=== PATIENT | female | born 1995 | race Caucasian/White ===

== ENCOUNTER 2019-11-04 09:02 | Outpatient (CLI) | payer OTHER, SELFPAY ==
--- NOTE | 2019-11-04 09:12 | NM_ITS ---
WS: [id number] NUCLEAR MEDICINE 24 HOUR I-123 THYROID UPTAKE INDICATION: Weight loss memory loss seizures TECHNIQUE: I-123 24 HOUR THYROID UPTAKE WITH PLANAR IMAGING. 145 UCI FADUMO 123 COMPARISON: None FINDINGS: Normal bilateral symmetric thyroid activity in the right and left thyroid lobes. No asymmet bo areas of uptake to indicate hot or cold nodules. Thyroid uptake at 24 hours equals 30.5%. NORMAL 24H THRYOID UPTAKE 8-35% NM/NM thyroid uptake multi 50093 IMPRESSION: Normal 24 hour thyroid uptake.
== END 2019-11-04 09:03 | disposition home or self-care (01) ==
LOC: RAD 09:08
PROVIDERS: Family Provider Family Medicine; PCP Family Medicine; Visit Provider Family Medicine
DX: E05.90 Thyrotoxicosis, unspecified without thyrotoxic crisis or storm (principal)
CPT/HCPCS: 78014; A9516

== ENCOUNTER 2019-11-05 09:00 | Outpatient (CLI) | payer OTHER, SELFPAY | END 2019-11-05 09:01 | disposition home or self-care (01) | LOC: RAD 09:04 | PROVIDERS: Family Provider Family Medicine; PCP Family Medicine; Visit Provider Family Medicine | DX: Z76.89 Persons encountering health services in other specified circumstances (principal) ==

== ENCOUNTER 2020-10-13 10:20 | Emergency (ER) | payer SELFPAY ==
[2020-10-13 10:27] VITALS: BP 121/78; PULSE 96; RESP 18; TEMP 36.3; O2SAT 98; BMI 17.4
[2020-10-13 10:34] VITALS: BP 114/74; PULSE 85; RESP 18; O2SAT 99
--- NOTE | 2020-10-13 10:56 | CT_ITS ---
WS: [id number] CT HEAD NONCONTRAST HISTORY: increasing seizures TECHNIQUE: Contiguous axial imaging performed through the brain in 2.5 mm imaging. Bone and soft tiss ue windows. Sagittal and coronal reformats reviewed. All CT scans at [facility] use at ast one of these dose optimization techniques: automated exposure control; mA and/or kV adjustment pe r patient size (includes targeted exams where dose is matched to clinical indication); or iterative r econstruction. DLP: 718.33 mGy.cm COMPARISON: 01/09/[address] 12/01/2017 No acute intracranial hemorrhage, midline shift or mass effect. No atrophy or prior infarcts or herniation. Retrocerebellar CSF collection is stable consistent with an arachnoid cyst. Ventricles: Normal size with no hydrocephalus. Paranasal sinuses: As visualized are clear. Mastoid air cells: Well pneumatized. Calvarium and scalp: Skull is intact with no soft tissue edema or swelling. CT/CT head wo con* [id number] IMPRESSION: Stable head CT. No interval change since 01/09/2018.
--- NOTE | 2020-10-13 10:57 | W.ED.SEIZURE ---
HPI - Seizure General: Chief Complaint: Seizure Stated Complaint: possible seizures Time Seen by Provider: 10/13/20 10:33 Source: patient and family Mode of arrival: ambulatory Limitations: no limitations History of Present Illness: HPI Narrative: Patient is a 25-year-old female who presents to ED today along with her mother for complaints of increased seizure activity. States between yesterday evening and this morning she has had four seizure activities. Patient tells me she does have a previous history of seizure activity. She tells me she has been evaluated by a neurologist at [place] as well as Dr. Hudson here in [facility] but has never been diagnosed formally with epilepsy. Patient tells me her PCP Dr. Gonzalez is primarily managing her seizures. She tells me she has been on several different antiepileptic medication previously but is currently on Zonegran. She at one point thought there was a correlation between her periods/hormones and her seizure activity therefore Dr. Gonzalez placed her on control to help with this. Patient admittedly smokes marijuana daily. She states she feels this helps tremendously with her seizures. She tells me last night she did not smoke marijuana as usual. She states she will also smoke in the middle of the night but again did not last night. Patient was taking citalopram for her anxiety/depression. She was recently switched to Remeron last month as she was having trouble sleeping and was losing weight. Reports she has gained 4 pounds in the last month after switching. complaint: seizure Onset (ago): hour(s) Description of Episode: tonic-clonic movement Witnessed: Yes - by Bystander (mother) Seizure History: Yes Place: Home Possible Precipitating Event: other (not smoking marijuana like usual) Associated symptoms: Deny chest pain, chills, confusion, fever(s) or syncope Review of Systems Const: Denies: fever(s), chills, body aches or fatigue Eyes: Denies: change in vision or blurry vision Card: Denies: chest pain, palpitations, irregular heart rhythm, lightheadedness, syncope or dyspnea on exertion Resp: Denies: dyspnea, productive cough or pain on inspiration GI: Denies: abdominal pain, nausea, vomiting, heartburn or diarrhea : Denies: flank pain, difficulty voiding, dysuria, urinary frequency or urinary urgency Musc: Denies: neck pain, back pain or joint pain Skin/Breast: Denies: rash Neuro: Denies: headache(s), numbness in extremities, weakness in extremities, sensory changes, dizziness or confusion Psych: Reports: anxiety and depression Physical Exam Const: COMMON NORMALS: no acute distress, patient oriented x3, alert and well nourished ORIENTATION/CONSCIOUSNESS: Yes oriented to person, Yes oriented to place and Yes oriented to time HENMT: COMMON NORMALS: normocephalic and atraumatic HEAD & SCALP: normal to inspection, normocephalic and atraumatic FACE & SINUS: normal facial exam MOUTH: other (abrasions to superior tongue from biting during seizure activity ) Neck/C-Spine: COMMON NORMALS: full ROM, no lymphadenopathy, supple and no meningeal signs Chest: COMMONS NORMALS: normal inspection of the chest Resp: COMMON NORMALS: normal respiratory effort and clear to auscultation bilaterally AUSCULTATION: clear to auscultation bilaterally Cardio: COMMON NORMALS: regular rate and regular rhythm RATE: regular rate RHYTHM: regular rhythm GI: COMMON NORMALS: Normal to inspection, nondistended, normoactive bowel sounds present, Soft to palpation, non-tender, No hepatosplenomegaly present and no masses PALPATION: Yes Soft to palpation and Yes No hepatosplenomegaly present : COMMON NORMALS: Yes no CVA tenderness BLADDER/KIDNEY EXAM: Yes no CVA tenderness Back/Pelvis: COMMON NORMALS: no CVA tenderness and thoracic and lumbar spine normal to inspection Extremity: COMMON NORMALS: normal to inspection Neuro: ELLEN COMA SCALE: document GCS findings Ellen coma scale eye opening: Spontaneous [place] coma scale verbal response: Orientated [place] coma scale motor response: Obey commands [place] coma scale total score: 15 COMMON NORMALS: patient oriented x3, CN's II-XII intact bilaterally, moves all extremities, no focal motor deficits and no sensory deficits noted SENSORIUM/ORIENTATION: Yes alert, Yes oriented to person, Yes oriented to place and Yes oriented to time MENINGEAL SIGNS: Yes no meningeal signs Psych: COMMON NORMALS: mental status grossly normal, Normal thought process present, cooperative, speech normal, activity/motor behavior normal, denies homicidal ideation and denies suicidal ideation APPEARANCE: Yes grossly normal ATTITUDE: Yes calm ACTIVITY/MOTOR BEHAVIOR: Yes appropriate eye contact SPEECH: Yes normal speech MOOD & AFFECT: Yes euthymic mood THOUGHT PROCESS: Normal thought process present THOUGHT CONTENT: Yes Normal thought content present MEMORY/COGNITION: Yes memory grossly intact and Yes cognition grossly intact INSIGHT: Good insight present (Psych) JUDGEMENT: Good judgement present (Psych) Skin: COMMON NORMALS: no rashes or lesions noted GENERAL SKIN EXAM: no rashes or lesions noted Course Consultations: Consultation #1: Dr. Gonzalez-does not recommend any changes to medications at this time. Wants to make sure patient has her diazepam that she can use for seizures at home (mother confirmed they do have this medication). Will follow up with patient in office as needed. Vital Signs: Vital signs: Vital Signs Temperature 97.3 F L 10/13/20 10:27 Pulse Rate 76 10/13/20 11:50 Respiratory Rate 18 10/13/20 11:50 Blood Pressure 114/74 10/13/20 11:50 Pulse Oximetry 96 10/13/20 11:50 MDM - Seizure MDM Narrative: Medical decision making narrative: Patient has not had any seizure activity while here. Her work-up is benign. The only correlation that patient, family, and myself can find is that patient did not smoke marijuana last night and in the middle of the night as usual. She is a heavy habitual marijuana user. Unknown whether the marijuana is actually helping with her seizures or if the seizures are caused by cannabinoid withdrawal. We will have her continue following up with her PCP. Return to ED precautions given. Lab Data: Labs: Lab Results 10/13/20 10/13/20 10/13/20 Range/Units 11:32 11:32 11:32 WBC 12.3 H (4.0-10.0) 10^3/ uL RBC 4.74 (4.1-5.3) 10^6/u L Hgb 14.5 (11.5-15.3) g/dL Hct 43.2 (37.0-47.0) % MCV 91.1 (81-99) fL MCH 30.6 (28.0-34.0) pg MCHC 33.6 (30.0-36.0) g/dL RDW 11.5 L (12.1-15.1) % Plt Count 245 (130-400) 10^3/c mm MPV 10.3 (7.4-10.4) fL Neut % (Auto) 82.1 % Lymph % (Auto) 10.9 % Nye % (Auto) 6.2 % Eos % (Auto) 0.2 % Baso % (Auto) 0.4 % Neut # (Auto) 10.11 H (1.8-7.7) 10^3/u L Lymph # (Auto) 1.3 (0.8-4.8) 10^3/u L Nye # (Auto) 0.8 (0.2-0.9) 10^3/u L Eos # (Auto) 0.0 (0.0-0.8) 10^3/u L Baso # (Auto) 0.1 (0.0-0.1) 10^3/u L Nucleated RBC % (a uto) 0 % Nucleated RBCs # 0.0 /100WBC Sodium 135 L (136-145) mmol/L Potassium 4.1 (3.5-5.1) mmol/L Chloride 107 (98-107) mmol/L Carbon Dioxide 21 L (22-29) mmol/L Anion Gap 11.1 (5-19) BUN 13 (6-20) mg/dL Creatinine 0.7 (0.5-0.9) mg/dL GFR Calculation 101.1 (90-130) mL/min Glucose 111 (65-115) mg/dL Calculated Osmolal ity 281 L (285-295) mOsm/k g Calcium 9.1 (8.5-10.5) mg/dL Magnesium 2.1 (1.7-2.3) mg/dL Total Bilirubin 0.2 (0.15-1.2) mg/dL AST 17 (0-32) U/L ALT 16 (0-33) U/L Alkaline Phosphata se 41 (35-105) IU/L Total Protein 6.8 (6.6-8.7) g/dL Albumin 3.9 (3.5-5.2) g/dL Globulin 2.9 (1.3-4.6) g/dL Urine Color (Yellow) Urine Appearance (CLEAR) Urine pH (5-7) Ur Specific Gravit y (1.005-1.030) Urine Protein (Negative) Urine Glucose (UA) (Normal) Urine Ketones (Negative) Urine Blood (Negative) Urine Nitrate (Negative) Urine Bilirubin (Negative) Urine Urobilinogen (Negative) mg/dL Ur Leukocyte Azul ase (Negative) Urine HCG, Qual Negative (Negative) Salicylates < 0.3 L (3-10) mg/dL Urine Opiates Scre en (Negative) ng/mL Acetaminophen < 5.0 L (10-30) ug/mL Ur Barbiturates Sc reen (Negative) ng/mL Ur Phencyclidine S crn (Negative) ng/mL Ur Amphetamines Sc reen (Negative) ng/mL U Benzodiazepines Scrn (Negative) ng/mL Urine Cocaine Scre en (Negative) ng/mL U Marijuana (THC) Screen (Negative) ng/mL Ethyl Alcohol < 10 (0-10) mg/dL 10/13/20 10/13/20 Range/Units 11:45 11:45 WBC (4.0-10.0) 10^3/ uL RBC (4.1-5.3) 10^6/u L Hgb (11.5-15.3) g/dL Hct (37.0-47.0) % MCV (81-99) fL MCH (28.0-34.0) pg MCHC (30.0-36.0) g/dL RDW (12.1-15.1) % Plt Count (130-400) 10^3/c mm MPV (7.4-10.4) fL Neut % (Auto) % Lymph % (Auto) % Nye % (Auto) % Eos % (Auto) % Baso % (Auto) % Neut # (Auto) (1.8-7.7) 10^3/u L Lymph # (Auto) (0.8-4.8) 10^3/u L Nye # (Auto) (0.2-0.9) 10^3/u L Eos # (Auto) (0.0-0.8) 10^3/u L Baso # (Auto) (0.0-0.1) 10^3/u L Nucleated RBC % (a uto) % Nucleated RBCs # /100WBC Sodium (136-145) mmol/L Potassium (3.5-5.1) mmol/L Chloride (98-107) mmol/L Carbon Dioxide (22-29) mmol/L Anion Gap (5-19) BUN (6-20) mg/dL Creatinine (0.5-0.9) mg/dL GFR Calculation (90-130) mL/min Glucose (65-115) mg/dL Calculated Osmolal ity (285-295) mOsm/k g Calcium (8.5-10.5) mg/dL Magnesium (1.7-2.3) mg/dL Total Bilirubin (0.15-1.2) mg/dL AST (0-32) U/L ALT (0-33) U/L Alkaline Phosphata se (35-105) IU/L Total Protein (6.6-8.7) g/dL Albumin (3.5-5.2) g/dL Globulin (1.3-4.6) g/dL Urine Color Yellow (Yellow) Urine Appearance Clear (CLEAR) Urine pH 6 (5-7) Ur Specific Gravit y 1.020 (1.005-1.030) Urine Protein Neg (Negative) Urine Glucose (UA) Norm (Normal) Urine Ketones Negative (Negative) Urine Blood Neg (Negative) Urine Nitrate Negative (Negative) Urine Bilirubin Neg (Negative) Urine Urobilinogen Norm (Negative) mg/dL Ur Leukocyte Azul ase Negative (Negative) Urine HCG, Qual (Negative) Salicylates (3-10) mg/dL Urine Opiates Scre en Negative (Negative) ng/mL Acetaminophen (10-30) ug/mL Ur Barbiturates Sc reen Negative (Negative) ng/mL Ur Phencyclidine S crn Negative (Negative) ng/mL Ur Amphetamines Sc reen Negative (Negative) ng/mL U Benzodiazepines Scrn Negative (Negative) ng/mL Urine Cocaine Scre en Negative (Negative) ng/mL U Marijuana (THC) Screen Positive H (Negative) ng/mL Ethyl Alcohol (0-10) mg/dL Imaging Data^: CT Head: Radiologist's impression: [address] [address] [address] Scan Report Signed Patient: Talia LyUnsimone #: [id number] : 1995Acct#:[id number] Age/Sex: 25 / FADM Date: 10/13/20 Loc: ERRoom/Bed: Attending Dr: Ordering Provider/Ordering MD: Alysa Nevarez Date of Service: 10/13/20 Procedure(s): CT head wo con* [id number] Accession Number(s): [id number] Report Number: [id number] WS: [id number] CT HEAD NONCONTRAST HISTORY: increasing seizures TECHNIQUE: Contiguous axial imaging performed through the brain in 2.5 mm imaging. Bone and soft tissue windows. Sagittal and coronal reformats reviewed. All CT scans at [facility] use at least one of these dose optimization techniques: automated exposure control; mA and/or kV adjustment per patient size (includes targeted exams where dose is matched to clinical indication); or iterative reconstruction. DLP: 718.33 mGy.cm COMPARISON: 01/09/[address] 12/01/2017 No acute intracranial hemorrhage, midline shift or mass effect. No atrophy or prior infarcts or herniation. Retrocerebellar CSF collection is stable consistent with an arachnoid cyst. Ventricles: Normal size with no hydrocephalus. Paranasal sinuses: As visualized are clear. Mastoid air cells: Well pneumatized. Calvarium and scalp: Skull is intact with no soft tissue edema or swelling. CT/CT head wo con* [id number] IMPRESSION: Stable head CT. No interval change since 01/09/2018. Dictated By:Galilea Corado DO Signed By:Galilea Corado DOSigned Date/Time:10/13/20 1201 DD/ 1158 Discharge Plan Discharge Patient Disposition: Home Clinical Impression: Seizure Condition: Stable Prescriptions: No Action zonisamide 100 mg capsule 200 mg PO BID@0900,2100 RF: 0 mirtazapine 15 mg tablet 15 mg PO BEDTIME@2100 RF: 0 Loryna (28) 3-0.02 mg tablet 1 tab PO DAILY@0900 RF: 0 Zofran 1 tab PO Q8H PRN (Reason: nausea/vomiting) RF: 0 Discharge Orders: Discharge ED (Routine); Ordered 10/13/20 Ordered By: Alysa Nevarez Referrals: Rod Gonzalez MD [Primary Care Provider] - Coding Level of Care Code ED [employer] for Chg Fwd Exam Comprehensive
[2020-10-13 11:39] LABS: Basophils # 0.1 10^3/uL (0.0-0.1); Basophils % 0.4 %; Eosinophils % 0.2 %; Hematocrit 43.2 % (37.0-47.0); Hemoglobin 14.5 g/dL (11.5-15.3); Lymphocytes # 1.3 10^3/uL (0.8-4.8); Lymphocytes % 10.9 %; Mean Corpuscular HGB Conc 33.6 g/dL (30.0-36.0); Mean Corpuscular Hemoglobin 30.6 pg (28.0-34.0); Mean Corpuscular Volume 91.1 fL (81-99); Mean Platelet Volume 10.3 fL (7.4-10.4); Monocytes # 0.8 10^3/uL (0.2-0.9); Monocytes % 6.2 %; Neutrophils # 10.11 10^3/uL (1.8-7.7); Neutrophils % 82.1 %; Nucleated Red Blood Cells % 0 %; Platelet Count 245 10^3/cmm (130-400); Red Blood Count 4.74 10^6/uL (4.1-5.3); Red Cell Distribution Width 11.5 % (12.1-15.1); White Blood Count 12.3 10^3/uL (4.0-10.0)
[2020-10-13 11:50] VITALS: BP 114/74; PULSE 76; RESP 18; O2SAT 96
[2020-10-13 11:54] LABS: Add Urine Microscopic? NO
[2020-10-13 11:56] LABS: Alanine Aminotransferase 16 U/L (0-33); Albumin Level 3.9 g/dL (3.5-5.2); Alkaline Phosphatase 41 IU/L (35-105); Anion Gap 11.1 (5-19); Aspartate Amino Transferase 17 U/L (0-32); Blood Urea Nitrogen 13 mg/dL (6-20); Calcium 9.1 mg/dL (8.5-10.5); Carbon Dioxide 21 mmol/L (22-29); Chloride 107 mmol/L (98-107); Globulin 2.9 g/dL (1.3-4.6); Glomerular Filtration Rate 101.1 mL/min (90-130); Glucose 111 mg/dL (65-115); Magnesium 2.1 mg/dL (1.7-2.3); Osmolality Calculated 281 mOsm/kg (285-295); Potassium 4.1 mmol/L (3.5-5.1); Sodium 135 mmol/L (136-145); Total Bilirubin 0.2 mg/dL (0.15-1.2); Total Protein 6.8 g/dL (6.6-8.7)
[2020-10-13 11:58] LABS: Bilirubin Urine Neg (Negative); Blood Urine Neg (Negative); Glucose Urine UA Norm (Normal); Ketones Urine Negative (Negative); Leukocyte Esterase Urine Negative (Negative); Nitrate Urine Negative (Negative); Protein Urine Neg (Negative); Urine Appearance Clear (CLEAR); Urine Color Yellow (Yellow); Urobilinogen Urine Norm (Negative); pH Urine 6 (5-7)
[2020-10-13 12:00] LABS: Acetaminophen < 5.0 ug/mL (10-30); Alcohol Level < 10 mg/dL (0-10); Salicylate < 0.3 mg/dL (3-10)
[2020-10-13 12:06] LABS: Amphetamines Screen Urine Negative (Negative); Barbiturates Screen Urine Negative (Negative); Benzodiazepines Screen Urine Negative (Negative); Cocaine Screen Urine Negative (Negative); Opiate Screen Urine Negative (Negative); PCP Screen Urine Negative (Negative); THC Screen Urine Positive (Negative)
[2020-10-13] MEDS: ketorolac 60 mg/2 mL INJ IM (12:28)
[2020-10-13 12:47] VITALS: BP 108/73; PULSE 69; RESP 18; TEMP 37.2; O2SAT 97
== END 2020-10-13 12:49 | disposition home or self-care (01) ==
PROVIDERS: Emergency Provider Physician Assistant; PCP Family Medicine
DX: R56.9 Unspecified convulsions (principal)
CPT/HCPCS: 12345; 70450; 80053; 80306; 80307; 81003; 81025; 83735; 85025; 96372; 99283; J1885

== ENCOUNTER 2020-12-25 09:04 | Emergency (ER) | payer SELFPAY ==
[2020-12-25 09:07] VITALS: BP 101/85; PULSE 89; RESP 14; TEMP 36.3; O2SAT 99; BMI 16.9
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
[2020-12-25 09:37] LABS: Basophils # 0.1 10^3/uL (0.0-0.1); Basophils % 0.3 %; Eosinophils % 0.1 %; Hematocrit 39.3 % (37.0-47.0); Hemoglobin 13.6 g/dL (11.5-15.3); Lymphocytes # 1.4 10^3/uL (0.8-4.8); Lymphocytes % 8.8 %; Mean Corpuscular HGB Conc 34.6 g/dL (30.0-36.0); Mean Corpuscular Hemoglobin 31.5 pg (28.0-34.0); Mean Platelet Volume 11.7 fL (7.4-10.4); Monocytes # 0.9 10^3/uL (0.2-0.9); Monocytes % 5.8 %; Neutrophils # 13.28 10^3/uL (1.8-7.7); Neutrophils % 84.7 %; Nucleated Red Blood Cells % 0 %; Platelet Count 207 10^3/cmm (130-400); Red Blood Count 4.32 10^6/uL (4.1-5.3); Red Cell Distribution Width 11.4 % (12.1-15.1); White Blood Count 15.7 10^3/uL (4.0-10.0)
[2020-12-25 09:53] LABS: Anion Gap 13.9 (5-19); Blood Urea Nitrogen 6 mg/dL (6-20); Calcium 8.8 mg/dL (8.5-10.5); Carbon Dioxide 21 mmol/L (22-29); Chloride 105 mmol/L (98-107); Glomerular Filtration Rate 120.8 mL/min (90-130); Glucose 115 mg/dL (65-115); Magnesium 1.6 mg/dL (1.7-2.3); Osmolality Calculated 281 mOsm/kg (285-295); Potassium 3.9 mmol/L (3.5-5.1); Sodium 136 mmol/L (136-145)
[2020-12-25 10:07] LABS: Bilirubin Urine Neg (Negative); Blood Urine Neg (Negative); Glucose Urine UA Norm (Normal); Ketones Urine 1+ (Negative); Leukocyte Esterase Urine Negative (Negative); Nitrate Urine Negative (Negative); Protein Urine Neg (Negative); Specific Gravity, Urine 1.015 (1.005-1.030); Urine Appearance Hazy (CLEAR); Urine Color Yellow (Yellow); Urobilinogen Urine Norm (Negative); pH Urine 7 (5-7)
[2020-12-25 10:08] LABS: Add Urine Microscopic? YES
[2020-12-25 10:10] LABS: Bacteria Urine TRACE /hpf; Mucus Urine TRACE /hpf
[2020-12-25 10:11] LABS: Amorphous Sediment Urine 2+ /hpf
[2020-12-25 10:12] LABS: Add Urine Culture? No
[2020-12-25 10:21] LABS: Creatine Phosphokinase 803 U/L (26-192)
[2020-12-25] MEDS: sodium chloride 0.9% 1,000 ML 999 ML IV (10:32)
[2020-12-25] MEDS: magnesium sulfate premix 2 GM/50 ML PIGGYBACK IV (10:32)
[2020-12-25] MEDS: lactated ringers 1,000 ML 999 ML IV (11:43)
[2020-12-25] MEDS: HYDROcodone-acetaminophen 5-325 mg Tablet 1 TAB PO (12:15)
[2020-12-25] MEDS: ketorolac 30 mg/mL INJ 15 MG IVP (12:15)
[2020-12-25 13:16] VITALS: BP 101/74; PULSE 87; RESP 18; O2SAT 98
== END 2020-12-25 13:17 | disposition home or self-care (01) ==
PROVIDERS: Emergency Provider Family Medicine; PCP Family Medicine
DX: G40.409 Other generalized epilepsy and epileptic syndromes, not intractable, without status epilepticus (principal)
CPT/HCPCS: 80048; 81001; 81025; 82550; 83735; 85025; 96361; 96365; 96375; 99284; J1885; J3475; J7030

== ENCOUNTER 2021-04-27 17:12 | Inpatient (IN) | payer MEDICAID, SELFPAY ==
[2021-04-27 17:18] VITALS: BP 141/100; PULSE 95; RESP 18; TEMP 37.1; O2SAT 99; BMI 17.5
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
[2021-04-27 17:54] VITALS: BP 135/100; PULSE 87; RESP 16; TEMP 36.7; O2SAT 98
[2021-04-27 18:19] LABS: Amphetamines Screen Urine Negative (Negative); Barbiturates Screen Urine Negative (Negative); Benzodiazepines Screen Urine Negative (Negative); Cocaine Screen Urine Negative (Negative); Opiate Screen Urine Negative (Negative); PCP Screen Urine Negative (Negative); THC Screen Urine Positive (Negative)
[2021-04-27 18:22] LABS: Bilirubin Urine Neg (Negative); Blood Urine Neg (Negative); Glucose Urine UA Norm (Normal); Ketones Urine Negative (Negative); Nitrate Urine Negative (Negative); Protein Urine Trace (Negative); Specific Gravity, Urine 1.025 (1.005-1.030); Urine Appearance Cloudy (CLEAR); Urine Color Yellow (Yellow); Urobilinogen Urine Norm (Negative); pH Urine 5 (5-7)
[2021-04-27 18:23] LABS: Add Urine Microscopic? YES; Bacteria Urine 1+ /hpf; Leukocyte Esterase Urine 1+ (Negative); Mucus Urine 1+ /hpf; RBC Urine 0-4 /hpf (0-2); WBC Urine 0-4 /hpf (0-5)
[2021-04-27 18:40] LABS: Basophils % 0.3 %; Eosinophils % 0.3 %; Hematocrit 39.9 % (37.0-47.0); Hemoglobin 13.5 g/dL (11.5-15.3); Lymphocytes # 2.1 10^3/uL (0.8-4.8); Lymphocytes % 16.4 %; Mean Corpuscular HGB Conc 33.8 g/dL (30.0-36.0); Mean Corpuscular Hemoglobin 30.5 pg (28.0-34.0); Mean Corpuscular Volume 90.3 fL (81-99); Mean Platelet Volume 10.6 fL (7.4-10.4); Monocytes # 0.6 10^3/uL (0.2-0.9); Neutrophils # 9.93 10^3/uL (1.8-7.7); Neutrophils % 77.7 %; Nucleated Red Blood Cells % 0 %; Platelet Count 235 10^3/cmm (130-400); Red Blood Count 4.42 10^6/uL (4.1-5.3); Red Cell Distribution Width 11.4 % (12.1-15.1); White Blood Count 12.8 10^3/uL (4.0-10.0)
[2021-04-27 18:52] LABS: HCG, Serum Qual Negative (Negative)
[2021-04-27] MEDS: LORazepam 1 mg Tablet PO (19:12)
[2021-04-27 19:14] LABS: Acetaminophen < 5.0 ug/mL (10-30); Alanine Aminotransferase 13 U/L (0-33); Alcohol Level < 10 mg/dL (0-10); Alkaline Phosphatase 40 IU/L (35-105); Anion Gap 14.7 (5-19); Aspartate Amino Transferase 16 U/L (0-32); Blood Urea Nitrogen 14 mg/dL (6-20); Calcium 8.6 mg/dL (8.5-10.5); Carbon Dioxide 18 mmol/L (22-29); Chloride 108 mmol/L (98-107); Globulin 2.3 g/dL (1.3-4.6); Glomerular Filtration Rate 101.1 mL/min (90-130); Glucose 90 mg/dL (65-115); Osmolality Calculated 284 mOsm/kg (285-295); Potassium 3.7 mmol/L (3.5-5.1); Salicylate < 0.3 mg/dL (3-10); Sodium 137 mmol/L (136-145); Thyroid Stimulating Hormone 0.75 uIU/mL (0.27-4.20); Total Bilirubin 0.2 mg/dL (0.15-1.2); Total Protein 6.3 g/dL (6.6-8.7)
[2021-04-27 19:37] VITALS: BP 132/87; PULSE 74; RESP 16; TEMP 36.8; O2SAT 99
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
[2021-04-27 21:05] VITALS: BP 126/86; PULSE 93; RESP 20; TEMP 36.7; O2SAT 94
[2021-04-27] MEDS: mirtazapine 15 mg Tablet PO (21:48)
[2021-04-27] MEDS: acetaminophen 325 mg Tablet 650 MG PO (21:49)
[2021-04-27] MEDS: zonisamide 100 MG Capsule 200 MG PO (21:49)
[2021-04-28 06:00] VITALS: BP 112/80; PULSE 69; RESP 16; TEMP 37.1; O2SAT 97
[2021-04-28] MEDS: zonisamide 100 MG Capsule 200 MG PO ×2 (07:52→20:56)
[2021-04-28 14:00] VITALS: BP 139/90; PULSE 64; RESP 16; TEMP 37.1; O2SAT 98
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
[2021-04-28 20:51] VITALS: BP 117/80; PULSE 75; RESP 18; TEMP 37.2; O2SAT 97
[2021-04-28] MEDS: divalproex DR 250 mg Tablet PO (20:57)
[2021-04-28] MEDS: mirtazapine 15 mg Tablet PO (20:57)
[2021-04-29 04:30] VITALS: BP 138/73; PULSE 100; RESP 18; TEMP 37
--- NOTE | 2021-04-29 06:13 | PC.NURSE ---
Seizure Beginning 2 min prior, period of confusion and agitation, grasping her tounge with fingers, pulling off sputum and while side lying,blowing and sucking. notified physician of seizure. Grand Mal, lasted about 45 seconds, postical phase lasted several moments.
[2021-04-29] MEDS: divalproex DR 250 mg Tablet PO ×2 (08:10→10:57)
[2021-04-29] MEDS: zonisamide 100 MG Capsule 200 MG PO (08:10)
--- NOTE | 2021-04-29 09:29 | PC.NURSE ---
PIG FARM MANAGER sitting with patient notified this nurse of patient having blood coming out of her mouth. RN ran down to room. When nurse entered room patient was sitting up in bed, picking at a metal plate on the wall. RN spoke to patient, Patient kept saying Help me, I'm gonna , Help me . Need to pee . Patient was spitting blood out of her mouth, RN noted that patient has a large abrasion on her tongue with active bleeding. Patient and two CNAs assisted patient to the bathroom. While in the bathroom this noticed she had some facial bruising and swelling to her left side of her face from her previous seizure. Patient was assisted back towards the bed and did not know where she was going to sleep. RN assisted patient to the bed, assisted her to lay down. IM Ativan administered to left Deltoid. Patient asked nurse to call her mother. Ice applied to her facial swelling. When speaking with PIG FARM MANAGER that was sitting with the patient. PIG FARM MANAGER stated She was resting, her arms tensed up, she sat up and then had blood coming out of her mouth . Provider notified.
[2021-04-29] MEDS: LORazepam 2 mg/mL INJ 1 mL IM (09:42)
--- NOTE | 2021-04-29 09:42 | PC.NURSE ---
PRN ATIVAN 2 MG GIVEN IM IN LEFT DELTOID FOR SEIZURE ACTIVITY. SEE OTHER NURSES NOTE ABOUT SEIZURE BEHAVIOR. PT CONT TO BE 1:1 FOR FALL RISK/SEIZURE PRECAUTIONS. WILL CONT TO MONITOR
[2021-04-29 14:00] VITALS: BP 109/69; PULSE 96; RESP 16; TEMP 37.2; O2SAT 97
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
[2021-04-29 15:59] VITALS: BP 109/69; PULSE 96; RESP 16; TEMP 37.2; O2SAT 97
[2021-05-02 12:33] LABS: Levetiracetam Keppra 9.4 mcg/mL
== END 2021-04-29 16:12 | disposition home or self-care (01) | DRG 881 ==
LOC: ER 17:31 → NP 19:21
PROVIDERS: Admitting Provider Psychiatry & Neurology Psychiatry; Emergency Provider Nurse Practitioner Family; PCP Family Medicine; Visit Provider Psychiatry & Neurology Psychiatry
DX: F32.9 Major depressive disorder, single episode, unspecified (principal); R45.851 Suicidal ideations; Z68.1 Body mass index [BMI] 19.9 or less, adult; F39 Unspecified mood [affective] disorder; T42.6X5A Adverse effect of other antiepileptic and sedative-hypnotic drugs, initial encounter; F41.9 Anxiety disorder, unspecified; G40.909 Epilepsy, unspecified, not intractable, without status epilepticus; F12.90 Cannabis use, unspecified, uncomplicated; R63.6 Underweight; Z81.8 Family history of other mental and behavioral disorders
CPT/HCPCS: 80053; 80177; 80306; 80307; 81001; 84443; 84703; 85025; 96372; 99285; G0378; J2060

== ENCOUNTER → 2021-05-02 12:33 | Outpatient (BNVA) | payer MEDICAID, SELFPAY | PROVIDERS: PCP Family Medicine; Referring Provider Psychiatry & Neurology Psychiatry; Visit Provider Specialist | DX: G40.309 Generalized idiopathic epilepsy and epileptic syndromes, not intractable, without status epilepticus (principal); F41.9 Anxiety disorder, unspecified | CPT/HCPCS: 99205; 99215 ==

== ENCOUNTER → 2021-07-13 07:53 | Outpatient (BNVA) | payer MEDICAID, SELFPAY | PROVIDERS: PCP Family Medicine; Visit Provider Specialist | DX: G40.909 Epilepsy, unspecified, not intractable, without status epilepticus (principal); G43.711 Chronic migraine without aura, intractable, with status migrainosus | CPT/HCPCS: 99214 ==

== ENCOUNTER → 2021-12-05 08:15 | Outpatient (BNVA) | payer MEDICAID, SELFPAY | PROVIDERS: PCP Family Medicine; Visit Provider Specialist | DX: G40.909 Epilepsy, unspecified, not intractable, without status epilepticus (principal) | CPT/HCPCS: 99213 ==

== ENCOUNTER → 2021-12-07 08:00 | Outpatient (BNVA) | payer MEDICAID, SELFPAY | PROVIDERS: PCP Family Medicine; Visit Provider Counselor Mental Health | DX: F41.1 Generalized anxiety disorder (principal); F33.2 Major depressive disorder, recurrent severe without psychotic features; F43.12 Post-traumatic stress disorder, chronic; F44.9 Dissociative and conversion disorder, unspecified | CPT/HCPCS: 90834 ==

== ENCOUNTER → 2021-12-28 09:20 | Outpatient (BNVA) | payer MEDICAID, SELFPAY | PROVIDERS: PCP Family Medicine; Visit Provider Psychiatry & Neurology Psychiatry | DX: F41.1 Generalized anxiety disorder (principal); F33.2 Major depressive disorder, recurrent severe without psychotic features; F43.12 Post-traumatic stress disorder, chronic; F44.9 Dissociative and conversion disorder, unspecified; F12.20 Cannabis dependence, uncomplicated | CPT/HCPCS: 99214 ==

== ENCOUNTER → 2022-01-11 10:49 | Outpatient (BNVA) | payer MEDICAID, SELFPAY | PROVIDERS: PCP Family Medicine; Visit Provider Counselor Mental Health | DX: F41.1 Generalized anxiety disorder (principal); F33.2 Major depressive disorder, recurrent severe without psychotic features; F43.12 Post-traumatic stress disorder, chronic; F44.9 Dissociative and conversion disorder, unspecified | CPT/HCPCS: 90834 ==

== ENCOUNTER → 2022-02-08 07:42 | Outpatient (BNVA) | payer MEDICAID, SELFPAY | PROVIDERS: PCP Family Medicine; Visit Provider Counselor Mental Health | DX: F41.1 Generalized anxiety disorder (principal); F33.2 Major depressive disorder, recurrent severe without psychotic features; F43.12 Post-traumatic stress disorder, chronic; F44.9 Dissociative and conversion disorder, unspecified | CPT/HCPCS: 90834 ==

== ENCOUNTER → 2022-02-15 10:48 | Outpatient (BNVA) | payer MEDICAID, SELFPAY | PROVIDERS: PCP Family Medicine; Visit Provider Psychiatry & Neurology Psychiatry | DX: F41.1 Generalized anxiety disorder (principal); F33.2 Major depressive disorder, recurrent severe without psychotic features; F43.12 Post-traumatic stress disorder, chronic; F44.9 Dissociative and conversion disorder, unspecified; F12.20 Cannabis dependence, uncomplicated | CPT/HCPCS: 99214 ==

== ENCOUNTER → 2022-02-22 07:44 | Outpatient (BNVA) | payer MEDICAID, SELFPAY | PROVIDERS: PCP Family Medicine; Visit Provider Counselor Mental Health | DX: F41.1 Generalized anxiety disorder (principal); F33.2 Major depressive disorder, recurrent severe without psychotic features; F43.12 Post-traumatic stress disorder, chronic; F44.9 Dissociative and conversion disorder, unspecified | CPT/HCPCS: 90834 ==

== ENCOUNTER → 2022-03-01 07:46 | Outpatient (BNVA) | payer MEDICAID, SELFPAY | PROVIDERS: PCP Family Medicine; Visit Provider Counselor Mental Health | DX: F41.1 Generalized anxiety disorder (principal); F33.2 Major depressive disorder, recurrent severe without psychotic features; F43.12 Post-traumatic stress disorder, chronic; F44.9 Dissociative and conversion disorder, unspecified | CPT/HCPCS: 90834 ==

== ENCOUNTER → 2022-03-22 07:39 | Outpatient (BNVA) | payer MEDICAID, SELFPAY | PROVIDERS: PCP Family Medicine; Visit Provider Counselor Mental Health | DX: F41.1 Generalized anxiety disorder (principal); F33.2 Major depressive disorder, recurrent severe without psychotic features; F43.12 Post-traumatic stress disorder, chronic; F44.9 Dissociative and conversion disorder, unspecified | CPT/HCPCS: 90837; 90834 ==

== ENCOUNTER → 2022-03-29 09:48 | Outpatient (BNVA) | payer MEDICAID, SELFPAY | PROVIDERS: PCP Family Medicine; Visit Provider Psychiatry & Neurology Psychiatry | DX: F33.2 Major depressive disorder, recurrent severe without psychotic features (principal); F43.12 Post-traumatic stress disorder, chronic; F41.1 Generalized anxiety disorder; F44.9 Dissociative and conversion disorder, unspecified; F12.20 Cannabis dependence, uncomplicated | CPT/HCPCS: 99214 ==

== ENCOUNTER → 2022-05-09 09:06 | Outpatient (BNVA) | payer MEDICAID, SELFPAY | PROVIDERS: PCP Family Medicine; Visit Provider Specialist | DX: G40.309 Generalized idiopathic epilepsy and epileptic syndromes, not intractable, without status epilepticus (principal); G43.711 Chronic migraine without aura, intractable, with status migrainosus; F33.2 Major depressive disorder, recurrent severe without psychotic features | CPT/HCPCS: 99213; 99214 ==